=== PATIENT | male | born 1935 | race Caucasian/White ===

== ENCOUNTER 2017-01-02 11:05 | Inpatient (IN) | payer MEDICARE, OTHER ==
[~2017-01-02] VITALS: Ht 180.3 cm; Wt 87.8 kg
[~2017-01-02 11:05] MED LIST: ALBU8.5H3 INH; AMIO100T4 PO; AMIO200T42 PO; AMLO10TA4 PO; AMLO5TAB2 PO; APIX5TAB PO; ASPI-496 PO; ASPI-515 PO; ATOR40TA78 PO; AZIT500T4 PO; BENZ100C PO; CEFD300C2 PO; DOCU100C8 PO; FEXO1TAB25 PO; FLUT1AER INH; GLUC1500 PO; HYDR25TA6 PO; INSU100I18 SQ-INSULIN; INSU100I28 SQ-INSULIN; LOSA50TA2 PO; LOSA50TA6 PO; METO25TA35 PO; METO25TA91 PO; OMEP-110 PO; PRED20TA PO; SIMV40TA3 PO; TAMS0.4C2 PO; VIT1CAPS42 PO
[2017-01-02] MEDS ORDERED: METO25TA35 PO (12:01)
[2017-01-02] MEDS ORDERED: LACTATED RINGERS 1,000 ML IV SCH (12:03)
[2017-01-02 12:15] VITALS: BP 147/76
[2017-01-02] MEDS ORDERED: hydrALAzine 20 MG/ML, 1ML IV PRN (13:30)
[2017-01-02] MEDS ORDERED: ALBUTEROL SULFATE 2.5 MG/3 ML NPPB PRN (13:30)
[2017-01-02] MEDS ORDERED: LABETALOL 5MG/ML, 20ML IV PRN (13:30)
[2017-01-02] MEDS ORDERED: ONDANSETRON 2MG/ML, 2ML IVPush PRN (13:30)
[2017-01-02] MEDS ORDERED: GLYCOPYRROLATE 0.2MG/1ML ONE (13:31)
[2017-01-02] MEDS ORDERED: ROCURONIUM 10 MG/ML ONE (13:31)
[2017-01-02] MEDS ORDERED: PROPOFOL 10 MG/ML, 20ML ONE (13:31)
[2017-01-02] MEDS ORDERED: EPHEDRINE 50 MG/ML, 1ML ONE (13:31)
[2017-01-02] MEDS ORDERED: NEOSTIGMINE 1 MG/ML, 10ML ONE (13:31)
[2017-01-02] MEDS ORDERED: ALBUTEROL/IPRATROPIUM 2.5MG/0.5MG, 3 ML ONE (15:30)
[2017-01-02] MEDS ORDERED: FENTANYL PF 100 MCG/2ML ONE (15:50)
[2017-01-02] MEDS: FENTANYL PF 100 MCG/2ML IV PRN ×4 (15:55→16:34)
[2017-01-02 15:59] LABS: HEMOGLOBIN 11.1 g/dL (13.7-18.0)
[2017-01-02 19:30] VITALS: BP 145/73
[2017-01-02] MEDS ORDERED: ALBUTEROL/IPRATROPIUM 2.5MG/0.5MG, 3 ML NPPB PRN (22:30)
[2017-01-02] MEDS ORDERED: GUAIFENESIN/COD200MG-20MG/10ML LIQUID PO PRN (22:30)
[2017-01-02] MEDS ORDERED: ACETAMINOPHEN 500 MG TABLET PO PRN (22:30)
[2017-01-02 23:52] VITALS: BP 125/61
[2017-01-03 00:06] VITALS: BP 138/71
[2017-01-03] MEDS: AMLODIPINE 5 MG TABLET PO SCH ×2 (00:46→12:30)
[2017-01-03] MEDS: TAMSULOSIN 0.4 MG CAP.ER.24H PO SCH ×2 (00:46→08:26)
[2017-01-03] MEDS: METOPROLOL TARTRATE 25 MG TABLET PO SCH ×2 (00:47→08:29)
[2017-01-03 03:57] VITALS: BP 108/64
[2017-01-03] MEDS ORDERED: METOPROLOL TARTRATE 25 MG TABLET PO SCH (06:00)
[2017-01-03 06:55] VITALS: BP 112/65
[2017-01-03] MEDS ORDERED: OMEPRAZOLE 20 MG CAPSULE.DR PO SCH (07:30)
[2017-01-03] MEDS ORDERED: TAMSULOSIN 0.4 MG CAP.ER.24H PO SCH (09:00)
[2017-01-03] MEDS ORDERED: AMLODIPINE 5 MG TABLET PO SCH (09:00)
[2017-01-03] MEDS ORDERED: DOCUSATE 100 MG CAPSULE PO SCH (09:00)
[2017-01-03] MEDS ORDERED: AMIODARONE 200 MG TABLET PO SCH (09:00)
[2017-01-03] MEDS ORDERED: GUAI10LI PO (09:26)
[2017-01-03 13:17] VITALS: BP 104/65
[2017-01-03] MEDS ORDERED: ATORVASTATIN 40 MG TABLET PO SCH ×2 (21:00)
== END 2017-01-03 13:35 | disposition home or self-care (01) | DRG 167 ==
LOC: OUT 11:05 → 4NOR 18:52 → OUT 21:59 → 4NOR 22:00
PROVIDERS: ADMIT Internal Medicine; ATTEND Internal Medicine
PROC: 0BBJ8ZX Excision of Left Lower Lung Lobe, Via Natural or Artificial Opening Endoscopic, Diagnostic (ICD-10-PCS; 2017-01-02)
PROC: 0B9J8ZX Drainage of Left Lower Lung Lobe, Via Natural or Artificial Opening Endoscopic, Diagnostic (ICD-10-PCS; principal; 2017-01-02 13:15)
DX: C34.32 Malignant neoplasm of lower lobe, left bronchus or lung (principal); I13.0 Hypertensive heart and chronic kidney disease with heart failure and stage 1 through stage 4 chronic kidney disease, or unspecified chronic kidney disease; I50.9 Heart failure, unspecified; I25.10 Atherosclerotic heart disease of native coronary artery without angina pectoris; J44.9 Chronic obstructive pulmonary disease, unspecified; I25.5 Ischemic cardiomyopathy; G47.33 Obstructive sleep apnea (adult) (pediatric); N18.2 Chronic kidney disease, stage 2 (mild); E78.00 Pure hypercholesterolemia, unspecified; I25.2 Old myocardial infarction; Z85.118 Personal history of other malignant neoplasm of bronchus and lung; Z90.2 Acquired absence of lung [part of]; Z86.718 Personal history of other venous thrombosis and embolism
CPT/HCPCS: 31624; 31628; 31629; 36415; 71010; 76001; 85025; 87015; 87070; 87102; 87116; 87205; 87206; 88112; 88172; 88173; 88177; 88305; J2704; J2710; J3010; J3490; J7613; J7120